=== PATIENT | female | born 1990 | race American Indian/Alaskan Native ===

== ENCOUNTER 2016-11-01 09:57 | Outpatient (CLI) | payer MEDICAID ==
[2016-11-01 10:31] VITALS: BP 106/57
[2016-11-01] MEDS ORDERED: LACTATED RINGERS 500 ML IV ONE (12:19)
[2016-11-01 12:56] LABS: Bilirubin,Urine NEG (Negative); Blood,Urine NEG (Negative); Ketones,Urine NEG (Negative); Leukocyte Esterase,Urine TR (Negative); Mucus,Urine FEW /HPF; Nitrite,Urine NEG (Negative); Protein,Urine <15 mg/dL mg/dL (Negative); Urobilinogen,Urine < 2.0 mg/dL (<2.0)
[2016-11-01] MEDS ORDERED: BRETHINE SUB-Q ONE ×2 (14:00→14:34)
--- NOTE | 2016-11-01 14:00 | Ultrasound Report ---
ULTRASOUND OB LIMITED ULTRASOUND OB TRANSVAGINAL History: labor Technique: Transabdominal and transvaginal ultrasound with Doppler interrogation. Gestation: Single Position: Transverse with head to maternal right Heart Rate: 143 BPM Cervical length: 3.6 cm (Normal > 3 cm)
== END 2016-11-01 15:48 | disposition home or self-care (01) ==
LOC: TRG 09:57
PROVIDERS: ATTEND Obstetrics & Gynecology
DX: O47.02 False labor before 37 completed weeks of gestation, second trimester (principal); Z3A.21 21 weeks gestation of pregnancy
CPT/HCPCS: 59025; 76815; 76817; 81001; 96360; 96372; J3105; J7120

== ENCOUNTER 2018-06-17 15:04 | Emergency (ER) | payer MEDICAID ==
[2018-06-17 15:16] VITALS: BP 112/73
--- NOTE | 2018-06-17 15:43 | Emergency Department Report ---
ED Female HPI - General Chief complaint: Urogenital-Female Stated complaint: COMPLICATIONS Time Seen by Provider: 06/17/18 15:36 Source: patient, family Mode of arrival: Ambulatory Limitations: No Limitations - History of Present Illness Initial comments: Patient reports that she went to a clinic on June 04 and a total of that she was but could not date as it was too early. She said they did a ultrasound and told her that it was too early and because it was too early to see anything he could be an ectopic and a told her to follow-up. She says she called her [employer] but she could not wait so she came in. Patient is not having any related problem. She denies nausea vomiting, abdominal pain, vaginal discharge or pain, urinary burning, frequency or urgency., Vaginal bleed or back pain. Patient here requested an ultrasound. Complaint: other (patient here requested ultrasound systolic) Severity scale (0 -10): 0 Improves with: none Worsens with: none Are you Now?: Yes Last Menstrual Period: 05/19/18 EDC: 02/23/19 Associated Symptoms: denies: vaginal discharge, vaginal bleeding, nausea/vomiting, fever/chills, headaches, loss of appetite, dysuria, hematuria, rash, seizure, shortness of breath, syncope, weakness - Related Data Sexually active: No Previous Rx's Medication Instructions Recorded Last Taken Type Azithromycin [Zithromax Z-ALAYNA] 500 mg PO ONCE #1 pack 06/19/13 Unknown Rx Budesoni/Formoterol 80-4.5(Nf) 2 puff IH BID #1 inha 06/19/13 Unknown Rx [Symbicort 80-4.5] Guaifenesin/Codeine Phosphate 10 ml PO Q4-6H #4 oz 06/19/13 Unknown Rx [Cheratussin AC Syrup] predniSONE [Deltasone] 20 mg PO QDAY #12 tablet 06/19/13 Unknown Rx Allergies Allergy/AdvReac Type Severity Reaction Status Date / Time No Known Allergies Allergy Unverified 06/18/13 22:46 ED Review of Systems ROS: Stated complaint: COMPLICATIONS Other details as noted in HPI Constitutional: denies: chills, fever Eyes: denies: eye pain ENT: denies: throat pain, congestion Respiratory: denies: cough, shortness of breath, wheezing Cardiovascular: denies: chest pain, palpitations, dyspnea on exertion Gastrointestinal: denies: abdominal pain, nausea, vomiting Genitourinary: other (reports early possible 5 weeks). denies: dysuria, frequency, hematuria, discharge, abnormal menses Musculoskeletal: denies: back pain, joint swelling, arthralgia Skin: denies: rash Neurological: denies: headache, numbness, paresthesias, abnormal gait, vertigo ED Past Medical Hx - Past Medical History Previous Medical History?: Yes Hx Hypertension: No Hx Diabetes: No Hx Deep Vein Thrombosis: No Hx Renal Disease: No Hx Sickle Cell Disease: No Hx Seizures: No Hx Asthma: Yes (exercise induced asthma /hasnt used inhaler in yrs) Hx HIV: No - Surgical History Past Surgical History?: No - Family History Family history: hypertension - Social History Smoking Status: Never Smoker Substance Use Type: None - Medications Home Medications: Home Medications Medication Instructions Recorded Confirmed Last Taken Type Azithromycin [Zithromax Z-ALAYNA] 500 mg PO ONCE #1 pack 06/19/13 Unknown Rx Budesoni/Formoterol 80-4.5(Nf) 2 puff IH BID #1 inha 06/19/13 Unknown Rx [Symbicort 80-4.5] Guaifenesin/Codeine Phosphate 10 ml PO Q4-6H #4 oz 06/19/13 Unknown Rx [Cheratussin AC Syrup] predniSONE [Deltasone] 20 mg PO QDAY #12 tablet 06/19/13 Unknown Rx ED Physical Exam - General Limitations: No Limitations General appearance: alert, in no apparent distress - Head Head exam: Present: atraumatic, normocephalic, normal inspection, other - Eye Eye exam: Present: normal appearance, PERRL, EOMI Pupils: Present: normal accommodation - ENT ENT exam: Present: normal exam, normal orophraynx, mucous membranes moist - Neck Neck exam: Present: normal inspection, full ROM. Absent: tenderness, lymphadenopathy - Respiratory Respiratory exam: Present: normal lung sounds bilaterally. Absent: respiratory distress, chest wall tenderness - Cardiovascular Cardiovascular Exam: Present: regular rate, normal rhythm, normal heart sounds. Absent: systolic murmur, diastolic murmur - GI/Abdominal GI/Abdominal exam: Present: soft, normal bowel sounds. Absent: distended, tenderness, guarding, rebound, rigid, organomegaly, bruit, pulsatile mass - Extremities Exam Extremities exam: Present: normal inspection, full ROM, normal capillary refill, other (No cce. + 2 pulses in all extremities, no neurovascular compromise). Absent: tenderness, pedal edema, joint swelling, calf tenderness - Back Exam Back exam: Present: normal inspection, full ROM, other (ambulates without any difficulties). Absent: tenderness, CVA tenderness (R), CVA tenderness (L), muscle spasm, paraspinal tenderness, vertebral tenderness, rash noted - Neurological Exam Neurological exam: Present: alert, oriented X3, normal gait - Psychiatric Psychiatric exam: Present: normal affect, normal mood - Skin Skin exam: Present: warm, dry, intact, normal color. Absent: rash ED Course Vital Signs 06/17/18 15:13 Temperature 98.2 F Pulse Rate 83 Respiratory 83 H Rate Blood Pressure 112/73 O2 Sat by Pulse 100 Oximetry - Reevaluation(s) Reevaluation #1: 06/17/18 22:36 Patient had an uneventful ED course ED Medical Decision Making - Lab Data Lab Results 06/17/18 06/17/18 Range/Units 15:55 16:20 HCG, Quant 58669 H (0-4) mIU/mL Urine Color Straw (Yellow) Urine Turbidity Clear (Clear) Urine pH 7.0 (5.0-7.0) Ur Specific [place] 1.006 (1.003-1.030) Urine Protein <15 mg/dl (Negative) mg/dL Urine Glucose (UA) Neg (Negative) mg/dL Urine Ketones Neg (Negative) mg/dL Urine Blood Neg (Negative) Urine Nitrite Neg (Negative) Urine Bilirubin Neg (Negative) Urine Urobilinogen < 2.0 (<2.0) mg/dL Ur Leukocyte Esterase Tr (Negative) Urine WBC (Auto) < 1.0 (0.0-6.0) /HPF Urine RBC (Auto) 2.0 (0.0-6.0) /HPF U Epithel Cells (Auto) 1.0 (0-13.0) /HPF - Medical Decision Making This is a 28-year-old female here report that she was told by a clinic to follow-up ultrasound because it was too early at the time that she went. The told her that they could not rule out ectopic because they could not see the baby. Patient is not having any related problems include abdominal or back pain, vaginal bleeding and, vaginal discharge, urinary burning, frequency or urgency. Denies any fever or chills, shortness of breath or chest pain. Denies any swelling to legs. Pain is 0-10. She says she had the ultrasound clinic in [place] that you walk in and get related tests. She has had multiple positive test and ultrasound was done on 06/04/2018. STD testing that at the time and she said she did not have any STD and she is concerned for STD. Quantitative hCG is 26,644. Patient given copy of serum beta hCG results Critical care attestation.: If time is entered above; I have spent that time in minutes in the direct care of this critically ill patient, excluding procedure time. ED Disposition Clinical Impression: confirmed by positive blood test Disposition: TO HOME OR SELFCARE Is pt being admited?: No Does the pt Need Aspirin: No Condition: Stable Instructions: (ED) Additional Instructions: Continue to take vitamin If you developed abdominal pain or vaginal bleeding, return to the emergency room Follow-up with [facility] in 2-3 days. Increase the fluid intake to 2-3 L of water daily Referrals: PRIMARY CARE, [Primary Care Provider] - 2-3 Days ELEANOR GAINES [Staff Physician] - 2-3 Days Forms: Work/School Release Form(ED)
[2018-06-17 16:49] LABS: Bilirubin,Urine NEG (Negative); Blood,Urine NEG (Negative); Color,Urine Straw (Yellow); Protein,Urine <15 mg/dL mg/dL (Negative); Urobilinogen,Urine < 2.0 mg/dL (<2.0); WBC,Urine < 1.0 /HPF (0.0-6.0)
== END 2018-06-17 18:46 | disposition home or self-care (01) ==
LOC: ED 15:04
DX: Z32.01 Encounter for pregnancy test, result positive (principal)
CPT/HCPCS: 36415; 81001; 84702

== ENCOUNTER 2018-06-22 02:46 | Emergency (ER) | payer MEDICAID ==
[2018-06-22 02:59] VITALS: BP 125/70
[2018-06-22 03:28] LABS: Basophils % (Auto) 0.5 % (0.0-1.8); Eosinophils # (Auto) 0.1 K/mm3 (0.0-0.4); Eosinophils % (Auto) 1.1 % (0.0-4.3); Hemoglobin 12.5 gm/dl (10.1-14.3); Lymphocytes # (Auto) 1.8 K/mm3 (1.2-5.4); Lymphocytes % (Auto) 28.1 % (13.4-35.0); Mean Corpuscular HGB Conc 34 % (30-34); Mean Corpuscular Volume 93 fl (79-97); Monocytes # (Auto) 0.4 K/mm3 (0.0-0.8); Monocytes % (Auto) 6.3 % (0.0-7.3); Platelet Count 193 K/mm3 (140-440); Red Blood Count 3.99 M/mm3 (3.65-5.03)
--- NOTE | 2018-06-22 03:30 | Emergency Department Report ---
ED Female HPI - General Chief complaint: Vaginal Bleeding Stated complaint: BLEEDING WITH Time Seen by Provider: 06/22/18 03:30 Source: patient Mode of arrival: Ambulatory Limitations: No Limitations - History of Present Illness Initial comments: This is a 28-year-old female that was here on 06/17 2018 for ultrasound. Patient reported that they send her to the hospital to get ultrasound. She said they did ultrasound and ultrasound showed that it was too early and because it was too early they could not see anything and they could not rule out ectopic . Patient does not have any vaginal bleeding or discharge. She was not having any abdominal pain at that time. She had quantitative hCG done Ultrasound was not done because the patient was not having any vaginal bleeding or pelvic pain she went to a clinic and they did a test and she said they sent her for ultrasound Patient reports that she went to a clinic on June 04 and a total of that she was but could not date as it was too early. She said they did a ultrasound and told her that it was too early and because it was too early to see anything he could be an ectopic and a told her to follow-up. She says she called her [employer] but she could not wait so she came . Patient is not having any related problem. She denies nausea vomiting, abdominal pain, patient reports that she was at work this morning and she started having some spotting without any clots. She is not wearing any pads per patient. Denies any urinary burning, frequency or urgency. Pain is 0-10. Denies any back pain. Patient says she is here to get checked because she is having spotting. Quantitative hCG on the was 26,644. Denies any fever or chills. Patient was also referred to Dr. Gaines [facility] [employer] and she did not maybe ap pointment. She still taking vitamin. Complaint: vaginal bleeding -: This morning Severity scale (0 -10): 0 Are you Now?: Yes Associated Symptoms: vaginal bleeding. denies: vaginal discharge, abdominal pain, nausea/vomiting, fever/chills, headaches, loss of appetite, dysuria, hematuria, rash, seizure, shortness of breath, syncope, weakness - Related Data Sexually active: Yes : 4 Para: 3 Previous Rx's Medication Instructions Recorded Last Taken Type Azithromycin [Zithromax Z-ALAYNA] 500 mg PO ONCE #1 pack 06/19/13 Unknown Rx Budesoni/Formoterol 80-4.5(Nf) 2 puff IH BID #1 inha 06/19/13 Unknown Rx [Symbicort 80-4.5] Guaifenesin/Codeine Phosphate 10 ml PO Q4-6H #4 oz 06/19/13 Unknown Rx [Cheratussin AC Syrup] predniSONE [Deltasone] 20 mg PO QDAY #12 tablet 06/19/13 Unknown Rx Allergies Allergy/AdvReac Type Severity Reaction Status Date / Time No Known Allergies Allergy Unverified 06/18/13 22:46 ED Review of Systems ROS: Stated complaint: BLEEDING WITH Other details as noted in HPI Constitutional: denies: chills Respiratory: denies: cough, shortness of breath, wheezing Cardiovascular: denies: chest pain, palpitations, edema, syncope Gastrointestinal: denies: abdominal pain, nausea, vomiting, diarrhea, co nstipation, hematemesis, hematochezia Genitourinary: other (vaginal bleeding in early ). denies: urgency, dysuria, frequency, hematuria, discharge Musculoskeletal: denies: back pain, joint swelling, arthralgia Skin: denies: rash Neurological: denies: headache, numbness, paresthesias, abnormal gait, vertigo ED Past Medical Hx - Past Medical History Previous Medical History?: Yes Hx Hypertension: No Hx Diabetes: No Hx Deep Vein Thrombosis: No Hx Renal Disease: No Hx Sickle Cell Disease: No Hx Seizures: No Hx Asthma: Yes (exercise induced asthma /hasnt used inhaler in yrs) Hx HIV: No - Surgical History Past Surgical History?: No - Family History Family history: no significant - Social History Smoking Status: Never Smoker Substance Use Type: None - Medications Home Medications: Home Medications Medication Instructions Recorded Confirmed Last Taken Type Azithromycin [Zithromax Z-ALAYNA] 500 mg PO ONCE #1 pack 06/19/13 Unknown Rx Budesoni/Formoterol 80-4.5(Nf) 2 puff IH BID #1 inha 06/19/13 Unknown Rx [Symbicort 80-4.5] Guaifenesin/Codeine Phosphate 10 ml PO Q4-6H #4 oz 06/19/13 Unknown Rx [Cheratussin AC Syrup] predniSONE [Deltasone] 20 mg PO QDAY #12 tablet 06/19/13 Unknown Rx ED Physical Exam - General Limitations: No Limitations General appearance: alert, in no apparent distress - Head Head exam: Present: atraumatic, normocephalic, normal inspection - Eye Eye exam: Present: normal appearance, PERRL, EOMI Pupils: Present: normal accommodation - ENT ENT exam: Present: normal exam, normal orophraynx, mucous membranes moist - Neck Neck exam: Present: normal inspection, full ROM. Absent: tenderness, lymphadenopathy - Respiratory Respiratory exam: Present: normal lung sounds bilaterally. Absent: respiratory distress, chest wall tenderness - Cardiovascular Cardiovascular Exam: Present: regular rate, normal rhythm, normal heart sounds - GI/Abdominal GI/Abdominal exam: Present: soft, normal bowel sounds. Absent: distended, tenderness, guarding, rebound, rigid, organomegaly, mass, bruit, pulsatile mass - External exam: Present: normal external exam. Absent: erythema, swelling, lesions, lacerations, ecchymosis, bleeding Speculum exam: Present: vaginal bleeding. Absent: normal speculum exam, erythema, vaginal discharge, cervical discharge, foreign body, tissue, laceration Bi-manual exam: Present: normal bi-manual exam - Expanded Exam Expanded Female exam: Absent: vaginal laceration, tissue present in vagina, herpetic lesions, vulvar erythema, vulvar tenderness Amniotic fluid: Present: none Speculum exam: Present: cervical OS closed - Extremities Exam Extremities exam: Present: normal inspection, full ROM, normal capillary refill, other (No cce. + 2 pulses in all extremities, no neurovascular compromise). Absent: tenderness, pedal edema, joint swelling, calf tenderness - Back Exam Back exam: Present: normal inspection, full ROM, other (ambulates without any difficulties). Absent: CVA tenderness (R), CVA tenderness (L) - Neurological Exam Neurological exam: Present: alert, oriented X3, normal gait - Psychiatric Psychiatric exam: Present: normal affect, normal mood - Skin Skin exam: Present: warm, dry, intact, normal color. Absent: rash ED Course Vital Signs 06/22/18 02:52 Temperature 97.8 F Pulse Rate 90 Respiratory 20 Rate Blood Pressure 125/70 O2 Sat by Pulse 98 Oximetry - Reevaluation(s) Reevaluation #1: 06/22/18 03:39 Patient's CBC is stable and awaiting other lab work. She is awaiting in OB ultrasound. Pelvic exam pending Reevaluation #2: 06/22/18 03:45 Patient had STD testing and at clinic that she went to for evaluation. She has 3 living children and total amount of as 4 times. Pelvic exam done and noted dark brown color blood in vaginal vault but no coming from cervical os. Reevaluation #3: 06/22/18 04:37 Radiologist called to say the patient has demise at [address] I spoke with Dr. Lemuel Bland who is [facility] on-call for [facility] and he said that patient needs to follow-up with Dr. Gurrola tomorrow. Reevaluation #4: 06/22/18 04:42 Spoke with patient and let her know what her blood work and wanted ultrasound reports a showing. I told her that she needs to follow up with [facility] today to call in the morning at about 9:00 to schedule an appointment. I also told her that I spoke with the [facility] [employer] on-call and he wants her to come into the office tomorrow for follow-up visit and to the side the next step. Patient seems to be okay mentally and she says she is okay. I discussed with her she starts having heavy bleeding and abdominal pain to return to the emergency room otherwise ED Medical Decision Making - Lab Data Result diagrams: 06/22/18 03:09 Lab Results 06/22/18 06/22/18 06/22/18 Range/Units 03:09 03:09 03:09 WBC 6.3 (4.5-11.0) K/mm3 RBC 3.99 (3.65-5.03) M/mm3 Hgb 12.5 (10.1-14.3) gm/dl Hct 37.0 (30.3-42.9) % MCV 93 (79-97) fl MCH 31 (28-32) pg MCHC 34 (30-34) % RDW 14.0 (13.2-15.2) % Plt Count 193 (140-440) K/mm3 Lymph % (Auto) 28.1 (13.4-35.0) % [place] % (Auto) 6.3 (0.0-7.3) % Eos % (Auto) 1.1 (0.0-4.3) % Baso % (Auto) 0.5 (0.0-1.8) % Lymph # 1.8 (1.2-5.4) K/mm3 [place] # 0.4 (0.0-0.8) K/mm3 Eos # 0.1 (0.0-0.4) K/mm3 Baso # 0.0 (0.0-0.1) K/mm3 Seg Neutrophils % 64.0 (40.0-70.0) % Seg Neutrophils # 4.0 (1.8-7.7) K/mm3 HCG, Quant 94231 H (0-4) mIU/mL Urine Color (Yellow) Urine Turbidity (Clear) Urine pH (5.0-7.0) Ur Specific [place] (1.003-1.030) Urine Protein (Negative) mg/dL Urine Glucose (UA) (Negative) mg/dL Urine Ketones (Negative) mg/dL Urine Blood (Negative) Urine Nitrite (Negative) Urine Bilirubin (Negative) Urine Urobilinogen (<2.0) mg/dL Ur Leukocyte Esterase (Negative) Urine WBC (Auto) (0.0-6.0) /HPF Urine RBC (Auto) (0.0-6.0) /HPF U Epithel Cells (Auto) (0-13.0) /HPF Urine Mucus /HPF Blood Type O POSITIVE Antibody Screen Negative 06/22/18 Range/Units 03:45 WBC (4.5-11.0) K/mm3 RBC (3.65-5.03) M/mm3 Hgb (10.1-14.3) gm/dl Hct (30.3-42.9) % MCV (79-97) fl MCH (28-32) pg MCHC (30-34) % RDW (13.2-15.2) % Plt Count (140-440) K/mm3 Lymph % (Auto) (13.4-35.0) % [place] % (Auto) (0.0-7.3) % Eos % (Auto) (0.0-4.3) % Baso % (Auto) (0.0-1.8) % Lymph # (1.2-5.4) K/mm3 [place] # (0.0-0.8) K/mm3 Eos # (0.0-0.4) K/mm3 Baso # (0.0-0.1) K/mm3 Seg Neutrophils % (40.0-70.0) % Seg Neutrophils # (1.8-7.7) K/mm3 HCG, Quant (0-4) mIU/mL Urine Color Yellow (Yellow) Urine Turbidity Clear (Clear) Urine pH 5.0 (5.0-7.0) Ur Specific [place] 1.028 (1.003-1.030) Urine Protein <15 mg/dl (Negative) mg/dL Urine Glucose (UA) Neg (Negative) mg/dL Urine Ketones Neg (Negative) mg/dL Urine Blood Mod (Negative) Urine Nitrite Neg (Negative) Urine Bilirubin Neg (Negative) Urine Urobilinogen < 2.0 (<2.0) mg/dL Ur Leukocyte Esterase Neg (Negative) Urine WBC (Auto) 1.0 (0.0-6.0) /HPF Urine RBC (Auto) < 1.0 (0.0-6.0) /HPF U Epithel Cells (Auto) 3.0 (0-13.0) /HPF Urine Mucus 2+ /HPF Blood Type Antibody Screen - Radiology Data Radiology results: report reviewed Ultrasound OB transvaginal and transabdominal dictated by radiologist and report reviewed by myself. Radiology is called to say that patient would demise at 6 weeks and 2 days. Findings [place] [id number] Ultrasound Report Signed Patient: NETTA KNIGHT MR#: [id number] : 1990 Acct:[id number] Age/Sex: 28 / F ADM Date: 06/22/18 Loc: ED Attending Dr: Ordering Physician: LOGAN JORDAN MD Date of Service: 06/22/18 Procedure(s): US OB transvaginal Accession Number(s): [id number] cc: LOGAN JORDAN MD FINAL REPORT EXAM: US OB TRANSVAGINAL HISTORY: with vag bleeding TECHNIQUE: Transvaginal imaging was obtained the pelvis including Doppler interrogation of the uterus. FINDINGS: The uterus is anteverted measuring 11.6 cm x 8.1 cm x 7.5 cm. Within the uterus is a gestational sac with slightly irregular margins. Within the sac is a pole measuring 5.5 mm in crown-rump length. This corresponds to a 6 week 2 day IUP. There is no demonstrable cardiac activity. Free fluid is not seen. There is a hypoechoic area adjacent to the gestational sac compatible with subchorionic hemorrhage. The ovaries are appropriate size contour and echotexture. The right ovary measures 3.4 cm x 1.9 cm x 2 cm. The left ovary measures 2.7 cm x 1.8 cm x 1.7 cm. Free fluid is not seen. IMPRESSION: demise, 6 week 2 day IUP. Normal-appearing maternal ovaries. No evidence of free fluid. Transcribed By: LANG Dictated By: TALI SPENCER MD Electronically Authenticated By: TALI SPENCER MD Signed Date/Time: 06/22/18424 DD/ 6 TD/TT: 06/22/[address] [facility] [address] [place] [address] Ultrasound Report Signed Patient: NETTA KNIGHT MR#: [id number] : 1990 Acct:[id number] Age/Sex: 28 / F ADM Date: 06/22/18 Loc: ED Attending Dr: Ordering Physician: LOGAN JORDAN MD Date of Service: 06/22/18 Procedure(s): US OB <= 14 weeks fetus Accession Number(s): [id number] cc: LOGAN JORDAN MD FINAL REPORT EXAM: US OB lt; = 14 WEEKS FETUS HISTORY: with vag bleeding TECHNIQUE: Transabdominal imaging was obtained of the pelvis FINDINGS: The uterus is anteverted measuring 11.6 cm x 8.1 cm x 7.5 cm. Within the uterus is a gestational sac with irregular margins. Within the sac is a pole corresponding to a 6 week 2 day IUP. The crown-rump length is 5.5 mm. There is no demonstrable cardiac activity. A yolk sac is not seen. The maternal ovaries are appropriate size contour and echotexture. The right ovary measures 3.4 cm x 1.9 cm x 2 cm. The left ovary measures 2.7 cm x 1.8 cm x 1.7 cm. IMPRESSION: demise, 6 week 2 day IUP. Normal-appearing maternal ovaries. No evidence of free fluid. Transcribed By: LANG Dictated By: TALI SPENCER MD Electronically Authenticated By: TALI SPENCER MD Signed Date/Time: 06/22/18421 DD/ 4 TD/TT: 06/22/18424 - Medical Decision Making This is a 28-year-old female reports that she is evident vaginal bleeding. She was seen here on the and was told to follow-up with Dr. Gaines in 2-3 days but she did not. She says she was at work this morning and she started having some vaginal bleeding and without any clots and she came in to see withdrawn on. Patient urinalysis was stable and her CBC is stable. Quantitativ e hCG was 20 6644 [place] [address]. Areas radiologist called to say the patient with demise, 6 week 2 day IUP. Normal-appearing maternal ovaries. No evidence of free fluid. I discussed lab work and ultrasound results the patient and told her that she needs to follow up with [facility] to call at 9 AM in the morning as instructed by on-call [facility] [employer] and let them know what happened and that she was told to schedule an appointment to see [facility] [employer] this morning. She voiced understanding. Patient is in no pain at present. Patient discharged home from emergency room in stable condition. Vital signs stable she is afebrile and she is nontoxic in appearance. - Differential Diagnosis threatened miscarriage, demise, subchorionic bleed. Critical care attestation.: If time is entered above; I have spent that time in minutes in the direct care of this critically ill patient, excluding procedure time. ED Disposition Clinical Impression: Vaginal bleeding before 22 weeks gestation, demise, less than 22 weeks Disposition: DC-01 TO HOME OR SELFCARE Is pt being admited?: No Does the pt Need Aspirin: No Condition: Stable Instructions: Spontaneous Miscarriage (ED) Additional Instructions: Ultrasound shows that she have and [facility] [employer] doctor decision unit rn would like you to see [facility] this morning to call at 9 AM to let them know that Dr. Lemuel Bland said that he needed to come in to see [facility] [employer] today. If you experience increased vaginal bleeding, abdominal pain, fever and/or chills, weakness, please return to the emergency room otherwise follow-up with [facility] [employer] as instructed Referrals: ELEANOR GAINES [Staff Physician] - 06/22/18 9:00 am Forms: Work/School Release Form(ED)
[2018-06-22 03:49] LABS: Bilirubin,Urine NEG (Negative); Blood,Urine MOD (Negative); Color,Urine Yellow (Yellow); Mucus,Urine 2+ /HPF; Protein,Urine <15 mg/dL mg/dL (Negative); RBC,Urine < 1.0 /HPF (0.0-6.0); Urobilinogen,Urine < 2.0 mg/dL (<2.0)
--- NOTE | 2018-06-22 04:22 | Ultrasound Report ---
FINAL REPORT EXAM: US OB <= 14 WEEKS FETUS HISTORY: with vag bleeding TECHNIQUE: Transabdominal imaging was obtained of the pelvis FINDINGS: The uterus is anteverted measuring 11.6 cm x 8.1 cm x 7.5 cm. Within the uterus is a gestational sac with irregular margins. Within the sac is a pole corresponding to a 6 week 2 day IUP. The crown -rump length is 5.5 mm. There is no demonstrable cardiac activity. A yolk sac is not seen. The maternal ovaries are appropriate size contour and echotexture. The right ovary measures 3.4 cm x 1.9 cm x 2 cm. The left ovary measures 2.7 cm x 1.8 cm x 1.7 cm. IMPRESSION: demise, 6 week 2 day IUP. Normal-appearing maternal ovaries. No evidence of free fluid.
--- NOTE | 2018-06-22 04:25 | Ultrasound Report ---
FINAL REPORT EXAM: US OB TRANSVAGINAL HISTORY: with vag bleeding TECHNIQUE: Transvaginal imaging was obtained the pelvis including Doppler interrogation of the uteru s. FINDINGS: The uterus is anteverted measuring 11.6 cm x 8.1 cm x 7.5 cm. Within the uterus is a gestational sac with slightly irregular margins. Within the sac is a pole measuring 5.5 mm in crown-rump length . This corresponds to a 6 week 2 day IUP. There is no demonstrable cardiac activity. Free fluid is not seen. There is a hypoechoic area adjacent to the gestational sac compatible with subchorionic hemorrhage. The ovaries are appropriate size contour and echotexture. The right ovary measures 3.4 cm x 1.9 cm x 2 cm. The left ovary measures 2.7 cm x 1.8 cm x 1.7 cm. Free fluid is not seen. IMPRESSION: demise, 6 week 2 day IUP. Normal-appearing maternal ovaries. No evidence of free fluid.
== END 2018-06-22 04:55 | disposition home or self-care (01) ==
LOC: ED 02:46
DX: O36.4XX0 Maternal care for intrauterine death, not applicable or unspecified (principal); O99.511 Diseases of the respiratory system complicating pregnancy, first trimester; J45.909 Unspecified asthma, uncomplicated; Z3A.01 Less than 8 weeks gestation of pregnancy
CPT/HCPCS: 36415; 76801; 76817; 81001; 84702; 85025; 86850; 86900; 86901

== ENCOUNTER 2018-06-26 15:50 | Emergency (ER) | payer MEDICAID, OTHER ==
[2018-06-26 16:03] VITALS: BP 116/70
[2018-06-26 16:31] LABS: Hematocrit 40.8 % (30.3-42.9); Hemoglobin 13.7 gm/dl (10.1-14.3); Mean Corpuscular HGB Conc 34 % (30-34); Mean Corpuscular Volume 93 fl (79-97); Platelet Count 211 K/mm3 (140-440); Red Blood Count 4.38 M/mm3 (3.65-5.03); Red Cell Distribution Width 13.7 % (13.2-15.2)
[2018-06-26 16:46] LABS: BUN/Creatinine Ratio 13; Blood Urea Nitrogen 8 mg/dL (7-17); Calcium 9.4 mg/dL (8.4-10.2); Hemolysis Index 6
--- NOTE | 2018-06-26 17:21 | Emergency Department Report ---
ED HPI - General Chief complaint: Vaginal Bleeding Stated complaint: /BLEEDING Source: patient Mode of arrival: Ambulatory Limitations: No Limitations - History of Present Illness Initial comments: [id number] -[place] female who presents with vaginal bleeding for a few days. Patient states [facility] to [facility] today for her first appointment and they referred her here for further evaluation. Patient states bleeding initially started with spotting that is intermittent with white but progress to light bleeding that required a thin melisa pad. Patient is unsure of last menstrual period. Reports a history of irregular menses, A0. She denies abdominal pain, low back pain, frequency, urgency, dysuria, fever, nausea or vomiting, lightheadedness, or chest pain.. MD Complaint: vaginal bleeding Onset/Timin -: days(s) Severity: mild Severity scale (0 -10): 1 Consistency: intermittent Improves with: none Worsens with: none Associated symptoms: vaginal discharge. denies: nausea/vomiting, vaginal bleed ing, abdominal pain, dysuria, headache, vision changes, malaise, dysparuenia, rash, seizure, shortness of breath, syncope, weakness Vaginal bleeding: light :: Yes OB History - Current : no complications, other OB History - Previous Pregnancies: other (subchorionic hemorrhage) Pre- care: followed by OB - Related Data : 4 Para: 3 Ab: 0 Previous Rx's Medication Instructions Recorded Last Taken Type Azithromycin [Zithromax Z-ALAYNA] 500 mg PO ONCE #1 pack 06/19/13 Unknown Rx Budesoni/Formoterol 80-4.5(Nf) 2 puff IH BID #1 inha 06/19/13 Unknown Rx [Symbicort 80-4.5] Guaifenesin/Codeine Phosphate 10 ml PO Q4-6H #4 oz 06/19/13 Unknown Rx [Cheratussin AC Syrup] predniSONE [Deltasone] 20 mg PO QDAY #12 tablet 06/19/13 Unknown Rx Allergies Allergy/AdvReac Type Severity Reaction Status Date / Time No Known Allergies Allergy Verified 06/26/18 16:00 ED Review of Systems ROS: Stated complaint: /BLEEDING Other details as noted in HPI Constitutional: denies: chills, fever Respiratory: denies: cough, shortness of breath, wheezing Cardiovascular: denies: chest pain, palpitations Gastrointestinal: denies: abdominal pain, nausea, diarrhea Genitourinary: other (vaginal bleeding, ). denies: urgency, dysuria, frequency, hematuria, discharge Musculoskeletal: denies: back pain, joint swelling, arthralgia Neurological: denies: headache, weakness, paresthesias Psychiatric: denies: anxiety, depression ED Past Medical Hx - Past Medical History Previous Medical History?: No Hx Hypertension: No Hx Diabetes: No Hx Deep Vein Thrombosis: No Hx Renal Disease: No Hx Sickle Cell Disease: No Hx Seizures: No Hx Asthma: Yes (exercise induced asthma /hasnt used inhaler in yrs) Hx HIV: No - Surgical History Past Surgical History?: No - Social History Smoking Status: Never Smoker Substance Use Type: None - Medications Home Medications: Home Medications Medication Instructions Recorded Confirmed Last Taken Type Azithromycin [Zithromax Z-ALAYNA] 500 mg PO ONCE #1 pack 06/19/13 Unknown Rx Budesoni/Formoterol 80-4.5(Nf) 2 puff IH BID #1 inha 06/19/13 Unknown Rx [Symbicort 80-4.5] Guaifenesin/Codeine Phosphate 10 ml PO Q4-6H #4 oz 06/19/13 Unknown Rx [Cheratussin AC Syrup] predniSONE [Deltasone] 20 mg PO QDAY #12 tablet 06/19/13 Unknown Rx ED Physical Exam - General Limitations: No Limitations General appearance: alert, in no apparent distress - Respiratory Respiratory exam: Present: normal lung sounds bilaterally. Absent: respiratory distress - Cardiovascular Cardiovascular Exam: Present: regular rate, normal rhythm. Absent: systolic murmur, diastolic murmur, rubs, gallop - GI/Abdominal GI/Abdominal exam: Present: soft, normal bowel sounds. Absent: distended, tenderness, guarding, rebound, rigid, organomegaly, mass, bruit, pulsatile mass, hernia - Back Exam Back exam: Absent: CVA tenderness (R), CVA tenderness (L) - Neurological Exam Neurological exam: Present: alert, oriented X3, normal gait - Psychiatric Psychiatric exam: Present: normal affect, normal mood - Skin Skin exam: Present: warm, dry, intact, normal color. Absent: rash ED Course Vital Signs 06/26/18 16:00 Temperature 97.7 F Pulse Rate 89 Respiratory 16 Rate Blood Pressure 116/70 O2 Sat by Pulse 100 Oximetry ED Medical Decision Making - Lab Data Result diagrams: 06/26/18 16:10 06/26/18 16:10 Lab Results 06/26/18 06/26/18 06/26/18 Range/Units 16:06 16:10 16:10 WBC 6.3 (4.5-11.0) K/mm3 RBC 4.38 (3.65-5.03) M/mm3 Hgb 13.7 (10.1-14.3) gm/dl Hct 40.8 (30.3-42.9) % MCV 93 (79-97) fl MCH 31 (28-32) pg MCHC 34 (30-34) % RDW 13.7 (13.2-15.2) % Plt Count 211 (140-440) K/mm3 Sodium 139 (137-145) mmol/L Potassium 4.2 (3.6-5.0) mmol/L Chloride 100.4 (98-107) mmol/L Carbon Dioxide 27 (22-30) mmol/L Anion Gap 16 mmol/L BUN 8 (7-17) mg/dL Creatinine 0.6 L (0.7-1.2) mg/dL Estimated GFR > 60 ml/min BUN/Creatinine Ratio 13 % Glucose 91 (65-100) mg/dL Calcium 9.4 (8.4-10.2) mg/dL HCG, Quant 02931 H (0-4) mIU/mL Urine Color (Yellow) Urine Turbidity (Clear) Urine pH (5.0-7.0) Ur Specific [place] (1.003-1.030) Urine Protein (Negative) mg/dL Urine Glucose (UA) (Negative) mg/dL Urine Ketones (Negative) mg/dL Urine Blood (Negative) Urine Nitrite (Negative) Urine Bilirubin (Negative) Urine Urobilinogen (<2.0) mg/dL Ur Leukocyte Esterase (Negative) Urine WBC (Auto) (0.0-6.0) /HPF Urine RBC (Auto) (0.0-6.0) /HPF U Epithel Cells (Auto) (0-13.0) /HPF Urine Bacteria (Auto) (Negative) /HPF Urine Mucus /HPF Blood Type 06/26/18 06/26/18 Range/Units 16:10 18:20 WBC (4.5-11.0) K/mm3 RBC (3.65-5.03) M/mm3 Hgb (10.1-14.3) gm/dl Hct (30.3-42.9) % MCV (79-97) fl MCH (28-32) pg MCHC (30-34) % RDW (13.2-15.2) % Plt Count (140-440) K/mm3 Sodium (137-145) mmol/L Potassium (3.6-5.0) mmol/L Chloride (98-107) mmol/L Carbon Dioxide (22-30) mmol/L Anion Gap mmol/L BUN (7-17) mg/dL Creatinine (0.7-1.2) mg/dL Estimated GFR ml/min BUN/Creatinine Ratio % Glucose (65-100) mg/dL Calcium (8.4-10.2) mg/dL HCG, Quant (0-4) mIU/mL Urine Color Yellow (Yellow) Urine Turbidity Clear (Clear) Urine pH 7.0 (5.0-7.0) Ur Specific [place] 1.013 (1.003-1.030) Urine Protein <15 mg/dl (Negative) mg/dL Urine Glucose (UA) Neg (Negative) mg/dL Urine Ketones Neg (Negative) mg/dL Urine Blood Neg (Negative) Urine Nitrite Neg (Negative) Urine Bilirubin Neg (Negative) Urine Urobilinogen < 2.0 (<2.0) mg/dL Ur Leukocyte Esterase Tr (Negative) Urine WBC (Auto) 2.0 (0.0-6.0) /HPF Urine RBC (Auto) 2.0 (0.0-6.0) /HPF U Epithel Cells (Auto) 3.0 (0-13.0) /HPF Urine Bacteria (Auto) 1+ (Negative) /HPF Urine Mucus 1+ /HPF Blood Type O POSITIVE - Radiology Data Radiology results: report reviewed FINAL REPORT PROCEDURE: US OB transvaginal TECHNIQUE: Real-time transvaginal sonography of the uterus, placenta, amniotic fluid, adnexa, and fetus was performed with image documentation. Measurements were obtained to determine age/size. M-mode Doppler was used to document heartbeat. HISTORY: vaginal bleeding during COMPARISON: No prior studies are available for comparison. FINDINGS: There is a sac-like structure in the endometrial cavity. Gestational Sac: 36.8 millimeters corresponding to 9 weeks estimated gestational age. No pole, yolk sac or cardiac activity is identified. Abnormal cannot be excluded. Amniotic fluid: Normal. Cervix: Normal. Right Ovary: Normal. Left Ovary: Normal. Estimated delivery date: 01/29/2019. Uterus and adnexa: Normal. IMPRESSION: Intrauterine gestational sac corresponding to estimated gestational age of 9 weeks. No pole, yolk sac or cardiac activity is identified. Abnormal is suspected. Correlation with beta HCG level suggested. - Medical Decision Making This is a 28 y.o. female presents with vaginal bleeding during for 5 days. Patient was examined by me. Vitals are normal and patient is in no acute distress. Obtained a urinalysis, CBC, hCG quant, and OB ultrasound. Quant [id number] all other labs unremarkable. Intrauterine gestational sac corresponding to estimated gestational age of 9 weeks. No pole, yolk sac or cardiac activity is identified. Abnormal is suspected. Correlation with beta HCG level suggested. Patient instructed to have repeat hCG quant in 48 hours with [facility] or in ER to r/o ectopic . Patient discharged home in stable condition. Critical care attestation.: If time is entered above; I have spent that time in minutes in the direct care of this critically ill patient, excluding procedure time. ED Disposition Clinical Impression: Vaginal bleeding affecting early , Threatened miscarriage in early Disposition: DC-01 TO HOME OR SELFCARE Is pt being admited?: No Does the pt Need Aspirin: No Condition: Stable Instructions: Threatened Miscarriage (ED) Additional Instructions: Have repeat hCG quant labs in 48 hours with [facility] or ER. Your hCG quantitative on this visit was [id number]. Remain on bed rest. Follow up with [facility] in 24-48 hours. Return to ER if increased vaginal bleeding, abdominal pain, and low back pain. Referrals: JUSTICE ELY MD [Primary Care Provider] - 3-5 Days [facility] [Provider Group] - 3-5 Days Forms: Work/School Release Form(ED) Time of Disposition: 20:52
[2018-06-26 18:59] LABS: Bacteria,Urine 1+ /HPF (Negative); Bilirubin,Urine NEG (Negative); Blood,Urine NEG (Negative); Color,Urine Yellow (Yellow); Mucus,Urine 1+ /HPF; Protein,Urine <15 mg/dL mg/dL (Negative); Urobilinogen,Urine < 2.0 mg/dL (<2.0)
--- NOTE | 2018-06-26 20:47 | Ultrasound Report ---
FINAL REPORT PROCEDURE: US OB transvaginal TECHNIQUE: Real-time transvaginal sonography of the uterus, placenta, amniotic fluid, adnexa, and fe tus was performed with image documentation. Measurements were obtained to determine age/size. M -mode Doppler was used to document heartbeat. HISTORY: vaginal bleeding during COMPARISON: No prior studies are available for comparison. FINDINGS: There is a sac-like structure in the endometrial cavity. Gestational Sac: 36.8 millimeters corresponding to 9 weeks estimated gestational age. No pole, yolk sac or cardiac activity is identified. Abnormal cannot be excluded. Amniotic fluid: Normal. Cervix: Normal. Right Ovary: Normal. Left Ovary: Normal. Estimated delivery date: 01/29/2019. Uterus and adnexa: Normal. IMPRESSION: Intrauterine gestational sac corresponding to estimated gestational age of 9 weeks. No pole, yo lk sac or cardiac activity is identified. Abnormal is suspected. Correlation with beta HCG level suggested.
--- NOTE | 2018-06-26 20:47 | Ultrasound Report ---
FINAL REPORT PROCEDURE: US OB <= 14 WEEKS FETUS TECHNIQUE: Real-time transabdominal sonography of the uterus, placenta, amniotic fluid, adnexa, and fetus was performed with image documentation. Measurements were obtained to determine age/size. M-mode Doppler was used to document heartbeat. CPT 04366 HISTORY: vaginal bleeding during COMPARISON: No prior studies are available for comparison. FINDINGS: There is a sac-like structure in the endometrial cavity. Gestational Sac: 36.8 millimeters corresponding to 9 weeks estimated gestational age. No pole, yolk sac or cardiac activity is identified. Abnormal cannot be excluded. Amniotic fluid: Normal. Cervix: Normal. Right Ovary: Normal. Left Ovary: Normal. Estimated delivery date: 01/29/2019. Uterus and adnexa: Normal. IMPRESSION: Intrauterine gestational sac corresponding to estimated gestational age of 9 weeks. No pole, yo lk sac or cardiac activity is identified. Abnormal is suspected. Correlation with beta HCG level suggested.
== END 2018-06-26 21:01 | disposition home or self-care (01) ==
LOC: ED 15:50
DX: O20.0 Threatened abortion (principal); J45.909 Unspecified asthma, uncomplicated; Z3A.09 9 weeks gestation of pregnancy
CPT/HCPCS: 36415; 76801; 76817; 80048; 81001; 84702; 85027; 86900; 86901

== ENCOUNTER 2018-07-05 22:59 | Emergency (ER) | payer SELFPAY ==
[2018-07-05 23:19] VITALS: BP 115/76
[2018-07-05 23:54] LABS: Basophils % (Auto) 0.4 % (0.0-1.8); Eosinophils # (Auto) 0.1 K/mm3 (0.0-0.4); Eosinophils % (Auto) 1.3 % (0.0-4.3); Hematocrit 40.4 % (30.3-42.9); Hemoglobin 13.2 gm/dl (10.1-14.3); Lymphocytes # (Auto) 1.5 K/mm3 (1.2-5.4); Lymphocytes % (Auto) 23.2 % (13.4-35.0); Mean Corpuscular HGB Conc 33 % (30-34); Mean Corpuscular Volume 94 fl (79-97); Monocytes # (Auto) 0.4 K/mm3 (0.0-0.8); Monocytes % (Auto) 6.4 % (0.0-7.3); Platelet Count 239 K/mm3 (140-440); Red Blood Count 4.32 M/mm3 (3.65-5.03); Red Cell Distribution Width 13.9 % (13.2-15.2)
--- NOTE | 2018-07-06 00:40 | Emergency Department Report ---
HPI - General Chief Complaint: Vaginal Bleeding Time Seen by Provider: 07/05/18 23:49 - HPI HPI: Room 26 The patient is a 28-year-old female presenting with a chief complaint of vaginal bleeding. The patient is evening at 22:00 she developed lower abdominal cramping and vaginal bleeding. Patient admits to heavy vaginal bleeding passing clots. The patient states she's gone through 2 pads tonight. Location: Pelvis Duration: Constant since 22:00 Quality: Cramping Severity: Moderate Modifying factors: [see above] Context: [see above] Mode of transportation: Unknown ED Past Medical Hx - Past Medical History Previous Medical History?: Yes Hx Asthma: Yes (exercise induced asthma /hasnt used inhaler in yrs) - Surgical History Past Surgical History?: No - Family History Family history: no significant - Social History Smoking Status: Never Smoker Substance Use Type: None, Alcohol (occasional) - Medications Home Medications: Home Medications Medication Instructions Recorded Confirmed Last Taken Type Azithromycin [Zithromax Z-ALAYNA] 500 mg PO ONCE #1 pack 06/19/13 Unknown Rx Budesoni/Formoterol 80-4.5(Nf) 2 puff IH BID #1 inha 06/19/13 Unknown Rx [Symbicort 80-4.5] Guaifenesin/Codeine Phosphate 10 ml PO Q4-6H #4 oz 06/19/13 Unknown Rx [Cheratussin AC Syrup] predniSONE [Deltasone] 20 mg PO QDAY #12 tablet 06/19/13 Unknown Rx Doxycycline [Vibramycin CAP] 100 mg PO Q12HR #14 capsule 07/06/18 Unknown Rx HYDROcodone/APAP 5-325 [[place] 1 - 2 each PO Q6HR PRN #14 tablet 07/06/18 Unknown Rx 5/325] Ibuprofen [Motrin 800 MG tab] 800 mg PO Q8HR PRN #20 tablet 07/06/18 Unknown Rx Methylergonovine Maleate 0.2 mg PO Q6H #4 tablet 07/06/18 Unknown Rx [Methergine] ED Review of Systems ROS: Stated complaint: BLEEDING EXCESSIVE Other details as noted in HPI Constitutional: no symptoms reported Eyes: denies: eye pain ENT: denies: throat pain Respiratory: no symptoms reported Cardiovascular: denies: chest pain Endocrine: no symptoms reported Gastrointestinal: abdominal pain Genitourinary: abnormal menses Musculoskeletal: denies: back pain Neurological: denies: headache Physical Exam - Physical Exam Vital Signs: Vital Signs 07/05/18 23:14 Temperature 98.8 F Pulse Rate 90 Respiratory 16 Rate Blood Pressure 115/76 O2 Sat by Pulse 99 Oximetry Physical Exam: GENERAL: The patient is well-developed well-nourished female lying on stretcher not appearing to be in acute distress. [] HEENT: Normocephalic. Atraumatic. Extraocular motions are intact. Patient has moist mucous membranes. NECK: Supple. Trachea midline CHEST/LUNGS: Clear to auscultation. There is no respiratory distress noted. HEART/CARDIOVASCULAR: Regular. There is no tachycardia. There is no gallop rub or murmur. ABDOMEN: Abdomen is soft, with mild discomfort to palpation in the suprapubic region. Patient has normal bowel sounds. There is no abdominal distention. SKIN: There is no rash. There is no edema. There is no diaphoresis. NEURO: The patient is awake, alert, and oriented. The patient is cooperative. The patient has normal speech and gait. MUSCULOSKELETAL: There is no evidence of acute injury. PELVIC: Vaginal vault filled with bright red blood and clots. ED Course Vital Signs 07/05/18 23:14 Temperature 98.8 F Pulse Rate 90 Respiratory 16 Rate Blood Pressure 115/76 O2 Sat by Pulse 99 Oximetry - Consultations Consultation #1: 07/06/18 03:05 [employer] paged 07/06/18 03:[address] Bland-Will evaluate 07/06/18 04:19 Dr. Bland has evaluated the patient states he is removed the products of conception. Request the patient be discharged home with Methergine 0.2 mg every 6 hours 4 doses, doxycycline 100 mg twice a day 7 days and Motrin for pain ED Medical Decision Making - Lab Data Result diagrams: 07/05/18 23:25 - Radiology Data Radiology results: report reviewed (pelvic ultrasound), image reviewed (pelvic ultrasound) [facility] [address] [place] [address] Ultrasound Report Signed Patient: NETTA KNIGHT MR#: [id number] : 1990 Acct:[id number] Age/Sex: 28 / F ADM Date: 07/05/18 Loc: ED Attending Dr: Ordering Physician: DAVY CASTRO MD Date of Service: 07/06/18 Procedure(s): US OB transvaginal Accession Number(s): [id number] cc: DAVY CASTRO MD FINAL REPORT PROCEDURE: US OB lt; = 14 WEEKS FETUS TECHNIQUE: Real-time transabdominal sonography of the uterus, placenta, amniotic fluid, adnexa, and fetus was performed with image documentation. Measurements were obtained to determine age/size. M-mode Doppler was used to document heartbeat. CPT 17261 HISTORY: vaginal bleeding COMPARISON: No prior studies are available for comparison. FINDINGS: The uterus size is 13.8 x 6.4 x 6.9 centimeters. The endometrium thickness is 23 millimeters. There is some mixed echogenicity of the endometrium. There is no evidence of a gestational sac on this study. Both ovaries have normal size and echogenicity. No evidence of fluid in the pelvis. The patient has beta HCG level is 4400. Findings are most consistent with failure and incomplete . IMPRESSION: There is a thickened endometrial pattern with no evidence of a gestational sac. With the patient's history the findings are most consistent with failure and incomplete Transcribed By: [facility] Dictated By: SETH WOODS MD Electronically Authenticated By: SETH WOODS MD Signed Date/Time: 07/06/18212 DD/ 1 TD/TT: 07/06/18211 - Differential Diagnosis threatened , spontaneous , incomplete , inevitable Critical care attestation.: If time is entered above; I have spent that time in minutes in the direct care of this critically ill patient, excluding procedure time. ED Disposition Clinical Impression: Incomplete Disposition: DC-01 TO HOME OR SELFCARE Is pt being admited?: No Does the pt Need Aspirin: No Condition: Stable Instructions: Spontaneous Miscarriage (ED) Additional Instructions: Return to the emergency department immediately should you develop worsening symptoms, fever, inability to tolerate food or liquid or any other concerns. Prescriptions: Doxycycline [Vibramycin CAP] 100 mg PO Q12HR #14 capsule HYDROcodone/APAP 5-325 [[place] 5/325] 1 - 2 each PO Q6HR PRN #14 tablet PRN Reason: Pain Ibuprofen [Motrin 800 MG tab] 800 mg PO Q8HR PRN #20 tablet PRN Reason: Pain, Moderate (4-6) Methylergonovine Maleate [Methergine] 0.2 mg PO Q6H #4 tablet Referrals: AMALIA TOBAR MD [Primary Care Provider] - 3-5 Days NEENA BLAND MD [Staff Physician] - 3-5 Days Time of Disposition: 04:19
--- NOTE | 2018-07-06 02:12 | Ultrasound Report ---
FINAL REPORT PROCEDURE: US OB <= 14 WEEKS FETUS TECHNIQUE: Real-time transabdominal sonography of the uterus, placenta, amniotic fluid, adnexa, and fetus was performed with image documentation. Measurements were obtained to determine age/size. M-mode Doppler was used to document heartbeat. CPT 27673 HISTORY: vaginal bleeding COMPARISON: No prior studies are available for comparison. FINDINGS: The uterus size is 13.8 x 6.4 x 6.9 centimeters. The endometrium thickness is 23 millimeters. There i s some mixed echogenicity of the endometrium. There is no evidence of a gestational sac on this study . Both ovaries have normal size and echogenicity. No evidence of fluid in the pelvis. The patient has b eta HCG level is 4400. Findings are most consistent with failure and incomplete . IMPRESSION: There is a thickened endometrial pattern with no evidence of a gestational sac. With the patient's hi story the findings are most consistent with failure and incomplete .
--- NOTE | 2018-07-06 02:13 | Ultrasound Report ---
FINAL REPORT PROCEDURE: US OB <= 14 WEEKS FETUS TECHNIQUE: Real-time transabdominal sonography of the uterus, placenta, amniotic fluid, adnexa, and fetus was performed with image documentation. Measurements were obtained to determine age/size. M-mode Doppler was used to document heartbeat. CPT 71146 HISTORY: vaginal bleeding COMPARISON: No prior studies are available for comparison. FINDINGS: The uterus size is 13.8 x 6.4 x 6.9 centimeters. The endometrium thickness is 23 millimeters. There i s some mixed echogenicity of the endometrium. There is no evidence of a gestational sac on this study . Both ovaries have normal size and echogenicity. No evidence of fluid in the pelvis. The patient has b eta HCG level is 4400. Findings are most consistent with failure and incomplete . IMPRESSION: There is a thickened endometrial pattern with no evidence of a gestational sac. With the patient's hi story the findings are most consistent with failure and incomplete
== END 2018-07-06 04:29 | disposition home or self-care (01) ==
LOC: ED 22:59
DX: O03.4 Incomplete spontaneous abortion without complication (principal); J45.909 Unspecified asthma, uncomplicated; Z3A.00 Weeks of gestation of pregnancy not specified
CPT/HCPCS: 36415; 76801; 76817; 84702; 85025; 86850; 86900; 86901; 88305

== ENCOUNTER 2021-06-05 16:51 | Outpatient (CLI) | payer MEDICAID ==
[2021-06-05] MEDS ORDERED: LACTATED RINGERS 500 ML IV ONE (18:01)
--- NOTE | 2021-06-05 18:05 | Ultrasound Report ---
Limited OB ultrasound INDICATION: well-being FINDINGS: Single live intrauterine in transverse position. heart rate 1 37 bpm. IMPRESSION: Live intrauterine with heart rate 1 37 bpm. Signer Name: Emeterio Solitario MD Signed: 06/05/2021 6:01 PM Workstation Name: [id number]
== END 2021-06-05 18:08 | disposition home or self-care (01) ==
LOC: TRG 16:51 → APU 16:54 → TRG 18:08
PROVIDERS: ATTEND Obstetrics & Gynecology
DX: O36.8120 Decreased fetal movements, second trimester, not applicable or unspecified (principal); Z3A.21 21 weeks gestation of pregnancy
CPT/HCPCS: 59025; 76815

== ENCOUNTER 2021-09-05 19:37 | Outpatient (CLI) | payer MEDICAID ==
[2021-09-05 20:13] VITALS: BP 121/72
[2021-09-05] MEDS ORDERED: LACTATED RINGERS 1,000 ML ONE (21:46)
[2021-09-05] MEDS ORDERED: LACTATED RINGERS 1,000 ML IV ONE (23:39)
[2021-09-05] MEDS ORDERED: NIFEdipine*For Tocolysis only* 10 MG CAPSULE PO ONE (23:53)
== END 2021-09-06 01:41 | disposition home or self-care (01) ==
LOC: TRG 19:37 → APU 19:39 → TRG 09-06 01:41
PROVIDERS: ATTEND Obstetrics & Gynecology
DX: O62.9 Abnormality of forces of labor, unspecified (principal); O26.893 Other specified pregnancy related conditions, third trimester; R10.9 Unspecified abdominal pain; Z3A.34 34 weeks gestation of pregnancy
CPT/HCPCS: 59025; J7120; 96360